=== PATIENT | female | born 1940 | race Caucasian/White ===

== ENCOUNTER 2022-03-15 16:59 | Emergency (ER) | payer OTHER, SELFPAY ==
[2022-03-15 17:08] VITALS: PULSE 87; RESP 24; TEMP 37.1; O2SAT 98
[2022-03-15 17:28] VITALS: BP 150/80
--- NOTE | 2022-03-15 17:38 | ED.BACK ---
HPI - Back Pain/Injury General Chief Complaint: Back Pain/Injury Stated Complaint: back spasams Time Seen by Provider: 03/15/22 17:38 Source: patient, RN notes reviewed and old records reviewed Mode of arrival: wheelchair Limitations: no limitations History of Present Illness HPI Narrative: 82 year old female accompanied by daughter with complaints of severe left thoracic back pain which started on Friday and muscle spasms. She reports that she has been in contact with her PCP who ordered Zanaflex for her which did nothing and then yesterday patient reports she contacted her again and she ordered Flexeril for her yesterday which she has been taking more than prescribed without relief. Patient states that she last took 2 flexeril tabs at 1600 with no improvement at all. Patient reports that she called her PCP again today and was told to either come to urgent care or go to emergency room for pain shot. Instructed patient only have Toradol in clinic and she would need to go to ER for more needed pain management.Patient reports pain is 10/10, she is restless and irritable due to pain. Patient and daughter agreeable to transfer. MD elicited complaint: back pain (left thoracic) Pertinent past history: other (valve replacement on blood thinner warfarin daily) Onset (ago): day(s) (5) Pain scale (0-10): 10 Location: thoracic spine Associated symptoms: other (spasms) Related Data Home Medications Medication Instructions Recorded Confirmed cyclobenzaprine 10 mg tablet 10 mg BID PRN spasm 03/15/22 03/15/22 warfarin 2 mg tablet 2 mg DAILY 03/15/22 03/15/22 Allergies Allergy/AdvReac Type Severity Reaction Status Date / Time No Known Allergies Allergy Unknown Unverified 03/15/22 17:24 Review of Systems Review of Systems: CONSTITUTIONAL: Denies fever, chills, or sweats. CARDIOVASCULAR: Denies chest pain, palpitations, or edema. RESPIRATORY: Denies cough or dyspnea. GASTROINTESTINAL: Denies abdominal pain, nausea, vomiting, or diarrhea. GENITOURINARY: Denies dysuria or hematuria. SKIN: Denies rash or itching. MUSCULOSKELETAL: Reports left sided thoracic back pain. No other joint pain or myalgia reported. 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 Hx of [facility]ci use of blood thinners warfarin Ovarian cancer Post-menopausal Surgical History Surgical History (Updated 03/16/22 @ 11:53 by Amanda Wilson NP) H/O mitral valve replacement History of cholecystectomy History of right breast biopsy History of total left knee replacement History of total right knee replacement Social History Social History (Updated 03/16/22 @ 11:53 by Amanda Wilson NP) Smoking status: Never smoker Alcohol intake: never Substance use: never Occupation/Education: retired Gender identity (if verbalized by the patient): Female Comments At time of signature, agree with nursing past medical, surgical, social and family history. There is no relevant family history pertinent to the presenting complaint Exam Narrative: GENERAL: ill-appearing, well-nourished, and in acute distress related to pain HEAD: Normocephalic, atraumatic. EYES: PERRLA and EOMI. NECK: Supple. No lymphadenopathy. CHEST: Clear to auscultation. No respiratory distress. SAO2 98% on room air, mechanical heart valve mitral HEART: Regular rate and rhythm. Distal pulses palpable and equal, cap refill <3 seconds ABDOMEN: Soft, nontender, nondistended, normal active bowel sounds, no palpable or pulsatile masses. No CVA tenderness MUSCULOSKELETAL: Normal range of motion and strength in all extremities; 5/5 strength with hip flexion
--- NOTE | 2022-03-15 17:56 | PC.NURSE ---
BENEFITS CLERK spoke with pt about plan of care. Pt agreeable to transfer to [facility] via private auto. BENEFITS CLERK called report to Dr. Mclaughlin. Pt advised that she will present to triage upon arrival to [facility] ER.
== END 2022-03-15 18:02 | disposition short-term general hospital (02) ==
PROVIDERS: Emergency Provider Registered Nurse
DX: M54.6 Pain in thoracic spine (principal); Z85.43 Personal history of malignant neoplasm of ovary; Z89.611 Acquired absence of right leg above knee; Z95.2 Presence of prosthetic heart valve; Z96.652 Presence of left artificial knee joint
CPT/HCPCS: 99211; 99212; G0463

== ENCOUNTER 2023-11-29 12:36 | Emergency (ER) | payer OTHER, SELFPAY ==
[2023-11-29 12:47] VITALS: BP 146/98; PULSE 74; RESP 20; TEMP 36.4; O2SAT 99
--- NOTE | 2023-11-29 13:10 | ED.GENADULT ---
HPI - General Adult General Chief complaint: Back Pain/Injury Stated complaint: Left Shoulder/ Back Pain Time Seen by Provider: 11/29/23 12:55 Source: patient, RN notes reviewed and old records reviewed Mode of arrival: wheelchair Limitations: no limitations History of Present Illness HPI narrative: 83 year old female presents per wheelchair accompanied by daughter with complaints of left shoulder, upper left back pain and neck with some down back for the past 6 days. Patient reports that she thinks she pulled a muscle in her back when she was getting out of wheelchair. Patient has a right AKA due to infection post right total knee replacement in wheelchair most of the time. Patient admits that she often sleeps in recliner. Patient reports that she had similar pain in 2021 and was sent to the hospital for further evaluation and found to be muscle strain. Patient is irritable. Patient reports no fevers chills or sweats, denies any increased pain with deep breathing, states no chest pain or any shortness of breath. Patient reports pain as spasms and pain increases with activity and changing positions.Patient reports that she has taken Tylenol Ibuprofen, and had 3 left over pain pills she took also. patient is on Coumadin therapy for prior mitral valve replacement. MD complaint: left upper back left should pain and some down back Onset (ago): day(s) (6) Severity scale (1-10): 10 Quality: aching, constant and other (spasms) Exacerbating factors: movement Treatments prior to arrival: NSAID and other (Tylenol states had 3 pain pill left over she took also) Related Data Home Medications Medication Instructions Recorded Confirmed warfarin 2 mg tablet 3 mg PO DAILY 03/15/22 11/29/23 latanoprost 0.005 % eye drops 1 drp EACH EYE DAILY 11/29/23 11/29/23 Allergies Allergy/AdvReac Type Severity Reaction Status Date / Time No Known Allergies Allergy Unknown Verified 11/29/23 12:54 Review of Systems Review of Systems: CONSTITUTIONAL: Denies fever, chills, or sweats. EYES: Denies visual changes, redness, or discharge. ENT: Denies rhinorrhea, congestion, sore throat, or otalgia. CARDIOVASCULAR: Denies chest pain, palpitations, reports chronic left leg edema. RESPIRATORY: Denies cough or dyspnea. GASTROINTESTINAL: Denies abdominal pain, nausea, vomiting, or diarrhea. GENITOURINARY: Denies dysuria or hematuria. SKIN: Denies rash or itching. MUSCULOSKELETAL: Reports left upper back pain to left shoulder and down back, no other joint pain, or myalgia. NEUROLOGIC: Denies headache, numbness, or weakness. PSYCHIATRIC: Denies anxiety or depression. 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 There is no relevant family history pertinent to the presenting complaint Exam Narrative: GENERAL: Well-appearing, well-nourished,obese, and in no acute distress. HEAD: Normocephalic, atraumatic. EYES: PERRLA and EOMI. ENT: Nares clear, no rhinorrhea or epistaxis. Mucous membranes moist.TM's normal throat pink with no swel
== END 2023-11-29 13:30 | disposition home or self-care (01) ==
PROVIDERS: Emergency Provider Registered Nurse; PCP Family Medicine
DX: S46.912A Strain of unspecified muscle, fascia and tendon at shoulder and upper arm level, left arm, initial encounter (principal); X58.XXXA Exposure to other specified factors, initial encounter; R25.2 Cramp and spasm; Z85.43 Personal history of malignant neoplasm of ovary; Z89.611 Acquired absence of right leg above knee; Z96.652 Presence of left artificial knee joint; Z95.2 Presence of prosthetic heart valve; Z79.01 Long term (current) use of anticoagulants
CPT/HCPCS: 99213; G0463